=== PATIENT | female | born 1940 | race Caucasian/White ===

== ENCOUNTER 2016-11-15 18:34 | Emergency (ER) | payer MEDICARE, OTHER ==
[2016-11-15 17:47] LABS: WBC (NOT ORDERED) (RFLEX) 0 (0-5)
[2016-11-15 17:51] LABS: BASOPHILS 0.4 %; BASOPHILS ABSOLUTE 0.04 10/3/uL (0.0-0.16); EOSINOPHILS 1.4 %; EOSINOPHILS ABSOLUTE 0.15 10/3/uL (0.0-0.53); ER CBC TAT 0 Hrs 05 Mins; HEMOGLOBIN 9.7 g/dL (12.0-16.0); IMMATURE GRANULOCYTES 1.2 %; IMMATURE GRANULOCYTES ABSOLUTE 0.13 10/3/uL (0.0-0.11); LYMPHOCYTES 22.1 %; MEAN CORPUS HGB CONC 33.1 g/dL (32.0-36.0); MEAN PLATELET VOLUME 11.7 fL (9.2-13.0); MONOCYTES 6.5 %; MONOCYTES ABSOLUTE 0.71 10/3/uL (0.21-1.20); NEUTROPHILS 68.4 %; NEUTROPHILS ABSOLUTE 7.45 10/3/uL (2.02-8.40); PLATELET COUNT 290 10/3/uL (150-400); RBC DISTRIBUTION WIDTH 15.2 % (12.0-16.0); RED CELL COUNT 3.34 10/6/uL (4.0-5.6); WHITE BLOOD CELLS 10.9 10/3/uL (4.5-10.5)
[2016-11-15 17:52] LABS: HEMATOCRIT 29.3 % (36.0-48.0); MANUAL DIFF NO %; MEAN CORPUSCULAR VOLUME 87.7 fL (80-100)
[2016-11-15 17:55] LABS: ASCORBIC ACID (UR NOT ORDER) 20 (NEG); BILIRUBIN, URINE NEGATIVE (NEG); ER URINALYSIS TAT 0 Hrs 09 Mins; KETONE, URINE NEGATIVE (NEG); LEUKOCYTE ESTERASE(NOT OR NEG (NEG); NITRITE (URINE) NEG (NEG)
[2016-11-15 18:02] LABS: D-DIMER QUANTITATIVE 0.69 ug/mLFEU (< 0.50)
[2016-11-15 18:07] LABS: A/G RATIO 0.9 (0.7-1.9); ALBUMIN 3.4 G/DL (3.5-5.0); CALCIUM, SERUM 9.1 MG/DL (8.5-10.4); CHLORIDE, SERUM 101 MMOL/L (96-112); CO2 (CARBON DIOXIDE) 26 MMOL/L (24-34); CREATININE 1.61 MG/DL (0.55-1.02); GFR AFRICAN AMERICAN 35 ML/MIN (>=60); GFR NON AFRICAN AMERICAN 31 ML/MIN (>=60); GLOBULIN 3.7 G/DL (2.5-4.1); GLUCOSE, SERUM 290 MG/DL (60-99); SGOT(AST) 245 U/L (5-40); SGPT(ALT) 205 U/L (5-65); TOTAL BILIRUBIN 0.7 MG/DL (0-1.2); TOTAL PROTEIN 7.1 G/DL (6.0-8.5); TROPONIN I 0.03 NG/ML (<0.05)
[2016-11-15 18:08] LABS: ALKALINE PHOSPHATASE 80 U/L (45-117); BUN (BLOOD UREA NITROGEN) 33 MG/DL (6-23); POTASSIUM, SERUM 5.1 MMOL/L (3.5-5.3); SODIUM, SERUM 132 MMOL/L (135-148)
[~2016-11-15 18:34] MED LIST: ADVIL PO; APIDRA SC; ASA5GR PO; ASAB PO; ASPERCREME TOP; BIOTIN5 MG OR; CENTRUM PO; COZ25 PO; CYANO1000T PO; D-3; EMETROL LIQ.1 ML PO; FIBERCON PO; FOLIC ACID800 MCG PO; FOLIC PO; GAS-X80 MG PO; GLUCOPHAGE1000 MG PO; IBU-200200 MG PO; IMDUR30 PO; IMDUR60 PO; L20 PO; LANTUS SC; LANTUSCART SC; LEVAQUIN750 MG PO; LIPITOR80 MG PO; LIQUID TEARS OPH; MAGOX4 PO; MULTIVIT/MIN PO; NITROSTAT0.4 MG SL; PEPTO BISMOL UD30 ML PO; PLAVIX PO; PREV30 PO; PRILOSEC OTC20 MG PO; RAN500 PO; RANEXA1000 MG PO; RESTASIS OPH; SEPTRA1 TAB PO; STOOL SOFTENER PO; TOPROL PO; TOPROL XL200 MG PO; TOPXL100 PO; TRICOR145 PO; VITAMIN B-121000 MC1 SL; VITAMIN B12 PO; VITAMIN D OTC PO; VITAMIN D31000 UNIT PO; VIVELLE SY0.025 MG/2 TOP; [UNRECOGNIZED DRUG - REMARK] PO
[2016-11-15] MEDS ORDERED: LEVEMIR SC (20:30)
[2016-11-15] MEDS ORDERED: PRILOSEC OTC20 MG PO (20:30)
[2016-11-15] MEDS ORDERED: PLAVIX PO (20:31)
[2016-11-15] MEDS ORDERED: MYRBETRIQ50 MG PO (20:31)
[2016-11-15] MEDS ORDERED: TOPXL100 PO (20:31)
[2016-11-15] MEDS ORDERED: COZ25 PO (20:31)
[2016-11-15] MEDS ORDERED: LIPITOR80 MG PO (20:31)
[2016-11-15] MEDS ORDERED: HUMALOG SC (20:31)
[2016-11-15] MEDS ORDERED: MIRALAX POWDER1 PKT PO (20:32)
[2016-11-15] MEDS ORDERED: THERGRANM PO (20:32)
[2016-11-15] MEDS ORDERED: SYSTANE OPH (20:32)
[2016-12-29] MEDS ORDERED: APIDRA SC (10:56)
[2016-12-29] MEDS ORDERED: CELEBREX2 PO (10:59)
[2016-12-29] MEDS ORDERED: L20 PO ×2 (10:59→11:00)
[2016-12-29] MEDS ORDERED: IMDUR60 PO (11:00)
[2016-12-29] MEDS ORDERED: VITAMIN D31000 UNIT PO (11:01)
[2016-12-29] MEDS ORDERED: PREV30 PO (11:01)
[2017-03-30] MEDS ORDERED: MACROBID PO (14:11)
== END 2016-11-15 21:50 | disposition home or self-care (01) ==
LOC: ER 18:34
PROVIDERS: Nurse Practitioner Acute Care
DX: E87.70 Fluid overload, unspecified (principal); D64.9 Anemia, unspecified; I13.0 Hypertensive heart and chronic kidney disease with heart failure and stage 1 through stage 4 chronic kidney disease, or unspecified chronic kidney disease; E11.22 Type 2 diabetes mellitus with diabetic chronic kidney disease; N18.9 Chronic kidney disease, unspecified; I50.9 Heart failure, unspecified; I25.10 Atherosclerotic heart disease of native coronary artery without angina pectoris; K21.9 Gastro-esophageal reflux disease without esophagitis; Z95.5 Presence of coronary angioplasty implant and graft; Z85.3 Personal history of malignant neoplasm of breast; Z88.5 Allergy status to narcotic agent; Z88.1 Allergy status to other antibiotic agents; Z79.899 Other long term (current) drug therapy; Z79.4 Long term (current) use of insulin
CPT/HCPCS: 71010; 71275; 80053; 81001; 83880; 84484; 85025; 85379; 87040; 87070; 87205; 93971; 96372; 99285; J1940; Q9967

== ENCOUNTER 2016-12-19 12:16 | Emergency (ER) | payer MEDICARE, OTHER ==
[~2016-12-19 12:16] MED LIST changes: +HUMALOG SC; +LEVEMIR SC; +MIRALAX POWDER1 PKT PO; +MYRBETRIQ50 MG PO; +SYSTANE OPH; +THERGRANM PO
[2016-12-19 13:32] LABS: ASCORBIC ACID (UR NOT ORDER) NEG (NEG); BILIRUBIN, URINE NEGATIVE (NEG); KETONE, URINE NEGATIVE (NEG); LEUKOCYTE ESTERASE(NOT OR NEG (NEG); NITRITE (URINE) NEG (NEG); WBC (NOT ORDERED) (RFLEX) 1 (0-5)
[2016-12-19 13:47] LABS: BASOPHILS 0.2 %; BASOPHILS ABSOLUTE 0.02 10/3/uL (0.0-0.16); EOSINOPHILS 0.4 %; EOSINOPHILS ABSOLUTE 0.04 10/3/uL (0.0-0.53); HEMATOCRIT 36.3 % (36.0-48.0); HEMOGLOBIN 11.7 g/dL (12.0-16.0); IMMATURE GRANULOCYTES ABSOLUTE 0.09 10/3/uL (0.0-0.11); LYMPHOCYTES ABSOLUTE 1.67 10/3/uL (0.67-4.30); MANUAL DIFF NO %; MEAN CORPUS HGB CONC 32.2 g/dL (32.0-36.0); MEAN CORPUSCULAR HEMOGLOB 28.3 pg (26.0-34.0); MEAN CORPUSCULAR VOLUME 87.9 fL (80-100); MEAN PLATELET VOLUME 11.8 fL (9.2-13.0); MONOCYTES ABSOLUTE 0.46 10/3/uL (0.21-1.20); NEUTROPHILS 75.4 %; PLATELET COUNT 323 10/3/uL (150-400); RBC DISTRIBUTION WIDTH 14.3 % (12.0-16.0); RED CELL COUNT 4.13 10/6/uL (4.0-5.6); WHITE BLOOD CELLS 9.3 10/3/uL (4.5-10.5)
[2016-12-19 13:55] LABS: INTERNATIONAL NORMAL RATI 1.3 UNITS (-); PARTIAL THROMBO TIME 28.5 SEC (22.5-37.2); PROTIME (NOT ORD) 15.7 SEC (12.0-14.5)
[2016-12-19 14:03] LABS: BUN (BLOOD UREA NITROGEN) 36 MG/DL (6-23); CALCIUM, SERUM 8.2 MG/DL (8.5-10.4); CHEST PAIN PROFILE TAT 0 Hrs 20 Mins; CHLORIDE, SERUM 104 MMOL/L (96-112); CO2 (CARBON DIOXIDE) 27 MMOL/L (24-34); CREATININE 1.56 MG/DL (0.55-1.02); GFR AFRICAN AMERICAN 37 ML/MIN (>=60); GFR NON AFRICAN AMERICAN 32 ML/MIN (>=60); GLUCOSE, SERUM 242 MG/DL (60-99); POTASSIUM, SERUM 4.8 MMOL/L (3.5-5.3); SODIUM, SERUM 137 MMOL/L (135-148); TROPONIN I 0.04 NG/ML (<0.05)
[2016-12-29] MEDS ORDERED: APIDRA SC (10:56)
[2016-12-29] MEDS ORDERED: L20 PO ×2 (10:59→11:00)
[2016-12-29] MEDS ORDERED: CELEBREX2 PO (10:59)
[2016-12-29] MEDS ORDERED: IMDUR60 PO (11:00)
[2016-12-29] MEDS ORDERED: PREV30 PO (11:01)
[2016-12-29] MEDS ORDERED: VITAMIN D31000 UNIT PO (11:01)
[2017-03-30] MEDS ORDERED: MACROBID PO (14:11)
== END 2016-12-19 14:45 | disposition home or self-care (01) ==
LOC: ER 12:16
PROVIDERS: Hospitalist
DX: I12.9 Hypertensive chronic kidney disease with stage 1 through stage 4 chronic kidney disease, or unspecified chronic kidney disease (principal); E11.22 Type 2 diabetes mellitus with diabetic chronic kidney disease; N18.3 Chronic kidney disease, stage 3 (moderate); R55 Syncope and collapse; F41.9 Anxiety disorder, unspecified; F32.9 Major depressive disorder, single episode, unspecified; Z90.49 Acquired absence of other specified parts of digestive tract; Z88.5 Allergy status to narcotic agent; Z88.1 Allergy status to other antibiotic agents; Z79.899 Other long term (current) drug therapy; Z79.4 Long term (current) use of insulin
CPT/HCPCS: 71010; 80048; 81001; 82962; 83735; 84484; 85025; 85610; 85730; 93005; 99285

== ENCOUNTER 2017-03-31 05:08 | Inpatient (IN) | payer MEDICARE, OTHER ==
[2017-03-23 11:42] LABS: BASOPHILS 0.3 %; BASOPHILS ABSOLUTE 0.03 10/3/uL (0.0-0.16); EOSINOPHILS ABSOLUTE 0.09 10/3/uL (0.0-0.53); HEMOGLOBIN 11.9 g/dL (12.0-16.0); IMMATURE GRANULOCYTES 0.3 %; IMMATURE GRANULOCYTES ABSOLUTE 0.03 10/3/uL (0.0-0.11); INTERNATIONAL NORMAL RATI 1.2 UNITS (-); LYMPHOCYTES 13.1 %; LYMPHOCYTES ABSOLUTE 1.18 10/3/uL (0.67-4.30); MEAN CORPUS HGB CONC 31.7 g/dL (32.0-36.0); MEAN CORPUSCULAR HEMOGLOB 27.5 pg (26.0-34.0); MEAN CORPUSCULAR VOLUME 86.6 fL (80-100); MEAN PLATELET VOLUME 12.6 fL (9.2-13.0); MONOCYTES 8.9 %; NEUTROPHILS 76.4 %; NEUTROPHILS ABSOLUTE 6.86 10/3/uL (2.02-8.40); PLATELET COUNT 230 10/3/uL (150-400); PROTIME (NOT ORD) 14.6 SEC (12.0-14.5); RBC DISTRIBUTION WIDTH 15.5 % (12.0-16.0); RED CELL COUNT 4.33 10/6/uL (4.0-5.6)
[2017-03-23 11:43] LABS: HEMATOCRIT 37.5 % (36.0-48.0); MANUAL DIFF NO %
[2017-03-23 11:50] LABS: ALBUMIN 3.5 G/DL (3.5-5.0); ALKALINE PHOSPHATASE 80 U/L (45-117); BUN (BLOOD UREA NITROGEN) 29 MG/DL (6-23); CALCIUM, SERUM 9.5 MG/DL (8.5-10.4); CHLORIDE, SERUM 99 MMOL/L (96-112); CO2 (CARBON DIOXIDE) 27 MMOL/L (24-34); CREATININE 1.41 MG/DL (0.55-1.02); GFR AFRICAN AMERICAN 42 ML/MIN (>=60); GFR NON AFRICAN AMERICAN 36 ML/MIN (>=60); GLOBULIN 3.6 G/DL (2.5-4.1); POTASSIUM, SERUM 4.4 MMOL/L (3.5-5.3); SGOT(AST) 27 U/L (5-40); SGPT(ALT) 28 U/L (5-65); SODIUM, SERUM 135 MMOL/L (135-148); TOTAL BILIRUBIN 0.7 MG/DL (0-1.2); TOTAL PROTEIN 7.1 G/DL (6.0-8.5)
[2017-03-23 11:51] LABS: B NATRIURETIC PEPTIDE (BNP) 499.1 PG/ML (< 100.0)
[2017-03-23 11:52] LABS: GLUCOSE, SERUM 445 MG/DL (60-99)
[2017-03-23 12:30] LABS: GLYCOHEMOGLOBIN (HbA1c) 9.7 % (4.7-6.1)
[2017-03-23 13:03] LABS: ASCORBIC ACID (UR NOT ORDER) NEG (NEG); BILIRUBIN, URINE NEGATIVE (NEG); KETONE, URINE NEGATIVE (NEG); LEUKOCYTE ESTERASE(NOT OR MOD (NEG); WBC (NOT ORDERED) (RFLEX) > 182 (0-5)
[2017-03-29 16:36] LABS: ASCORBIC ACID (UR NOT ORDER) NEG (NEG); BILIRUBIN, URINE NEGATIVE (NEG); KETONE, URINE NEGATIVE (NEG)
[~2017-03-31] VITALS: Ht 152.4 cm; Wt 48.2 kg
--- NOTE | ~2017-03-31 | CN ---
Consultation Report [facility] [address] [place]. [address] NAME: THUY REYES : 39 STATUS : ADM IN [facility]#: [id number] AGE: 76 ADM/REG DATE : 03/31/17 MR#: [id number] REPORT SERV DATE: 04/02/17 DICTATED BY: JAIRO MELARA DATE: 04/02/17 REPORT STATUS : Draft TRANSCRIBED BY: ELAYNE DATE: 04/02/17 NEUROLOGY CONSULTATION DATE OF CONSULTATION: 04/02/2017 REASON FOR CONSULTATION: Altered mental status post MitraClip. PRIVACY DIRECTOR: Dr. Ap Barton. HISTORY OF PRESENT ILLNESS: The patient is a 76-year-old female, who underwent MitraClip insertion on 03/31/2017. After the procedure the patient's mental status dramatically declined. She is definitely more cognitively impaired than prior to the procedure. The patient's son is in the room, and has been a valuable historian. He mentions that the patient was diagnosed with mild cognitive impairment. However, she functions fairly well. She is a . She lives at home by herself. She gets outside, takes care of the yard and fixes her own meals. She has no difficulty operating the microwave or telephone. She does have problems with short-term memory however. The patient recently had a urinary tract infection, and was treated with antibiotics. She was checked for urinary tract infection prior to her procedure, and it had cleared. After the patient's MitraClip, she experienced dramatic decline in her cognitive function. She is only oriented to person, not place, time, or situation. She is not combative. She will follow simple commands, but is easily distracted and confused. Her son mentions that she had a couple of episodes of mild visual hallucinations. She has been given morphine IV postoperatively, but that was discontinued. Today during the exam, she thought her son was her , and thought she was in [place]. She could not understand that she was actually in a hospital. PAST MEDICAL HISTORY: Diabetes mellitus type 2, diabetic ketoacidosis, coronary artery disease (prior stent placement), hypertension, hyperlipidemia, GERD, breast cancer (status post mastectomy) and mild cognitive impairment. PAST SURGICAL HISTORY: Status post MitraClip, cholecystectomy, total abdominal hysterectomy, breast lumpectomy, appendectomy, bilateral rotator cuff repair, and mastectomy. HOME MEDICATIONS: Includes aspirin 81 mg daily, Lipitor 80 mg at bedtime, Celebrex 200 mg daily, Plavix 75 mg daily, Pepcid 20 mg b.i.d., Lasix 20 mg daily, NovoLog insulin sliding scale before meals and at bedtime, Cozaar 25 mg daily, Toprol-XL 100 mg daily, and Ranexa 500 mg b.i.d. ALLERGIES: CIPRO, CODEINE, AND LEVAQUIN. SOCIAL HISTORY: The patient is a . Has two children. Used to be a choral teacher. Consultation Report [address] [place]. [address] NAME: THUY REYES : 39 STATUS : ADM IN [facility]#: [id number] AGE: 76 ADM/REG DATE : 03/31/17 MR#: [id number] REPORT SERV DATE: 04/02/17 DICTATED BY: JAIRO MELARA DATE: 04/02/17 REPORT STATUS : Draft TRANSCRIBED BY: ELAYNE DATE: 04/02/17 Does not smoke, drink, alcohol, or use illicits. FAMILY HISTORY: The patient's mother at the age of 97 from an [place]. Father at the age of 74 from an [place] and COPD. The patient has two siblings, a brother who from COPD, and a sister who is alive and has Alzheimer's. REVIEW OF SYSTEMS: Please refer to the HPI. PHYSICAL EXAMINATION: GENERAL: The patient is a 76-year-old female, who stands 5 feet tall and weighs 111 pound. VITAL SIGNS: She is afebrile. Heart rate 75, respiratory rate 18, O2 saturations on room air 97%, and blood pressure 138/97. NEUROLOGIC: The patient is awake. She is pleasant, is chatty. Oriented to person only, not place, time, or situation. She will follow some simple commands, but does get confused with more than two-step command. Speech is clear. Language is fluent. Pupils are 3 mm. EOMs are intact. PERRLA. Unable to accurately test vision via confrontation. She has difficulty following those commands. [id number], no ataxia. No pronator drift. Upper extremity strength is 4/5. Upper DTRs 2+ bilaterally. No reported sensory deficits. Lower extremity strength is 4/5. Lower DTRs 2+ bilaterally. No reported sensory deficits. I did not get the patient up to ambulate by herself, fall risk. NECK: No carotid bruits. No JVD or thyromegaly. CHEST: Lung sounds are relatively clear. Regular rate and rhythm. LABORATORY DATA: CBC reveals a white count of 12.1, otherwise normal. BMP: Sodium is 131, glucose 278. CT of the brain, no acute changes. NIH stroke scale is 1 for level of consciousness. ASSESSMENT/PLAN: 1. Acute metabolic encephalopathy. a. Possibly medication related. The morphine has been stopped. I will stop Pepcid since this can cause confusion in elderly patients. Place the patient on Protonix 40 mg p.o. daily. b. Check lab work which include a repeat urinalysis, blood gas values, ammonia level, a.m. cortisol, TSH, B12, and folate. c. If the above does not reveal any pertinent information, we will attempt to do an MRI. We will see if the patient can undergo an MRI with the MitraClip and do an EEG. 2. Mild cognitive impairment. We will offer supportive care and schedule the patient for outpatient Neurology. 3. Status post MitraClip. The patient is being followed by Neurology at this time. Thank you again for including us in consultation. We will follow with you. Dr. Gill Consultation Report [address] [address] NAME: THUY REYES : 39 STATUS : ADM IN [facility]#: [id number] AGE: 76 ADM/REG DATE : 03/31/17 MR#: [id number] REPORT SERV DATE: 04/02/17 DICTATED BY: JAIRO MELARA DATE: 04/02/17 REPORT STATUS : Draft TRANSCRIBED BY: MODL DATE: 04/02/17 [place], my collaborating physician has been made aware of the patient's case and plan of care. DICTATED BY: Barbra Mendez DNP, [facility] ZUÑIGA/ELAYNE Jairo Melara MD / [id number] CC: Jayjay Mustafa M.D.
--- NOTE | ~2017-03-31 | HP ---
History And Physical [place] [address] [facility] [place]. [address] NAME: THUY REYES : 39 STATUS : ADM IN [facility]#: [id number] AGE: 76 ADM/REG DATE : 03/31/17 MR#: [id number] REPORT SERV DATE: 04/01/17 DICTATED BY: RENARD CANO DATE: 04/01/17 REPORT STATUS : Draft TRANSCRIBED BY: MODL DATE: 04/01/17 DATE OF ADMISSION: 03/31/2017 CHIEF COMPLAINT: Left knee and left lower extremity pain. HISTORY: This 76-year-old female, very difficult historian. She is attended by her son, who notes that she is somewhat confused/sedated today and has been through a procedure regarding her mitral valve and had other procedures scheduled. She reports about two weeks ago, she twisted her knee and it popped and swollen since that time. She was unable to localize the symptoms, but describes pain in her foot, ankle, tibia, knee, thigh, leg, and hip area. She has minimal discomfort on the contralateral side. No real associated neurologic symptoms. ALLERGIES: CODEINE, CIPRO, LEVAQUIN. MEDICATIONS: See chart. PAST MEDICAL HISTORY: Hypercholesterolemia, murmur, hypertension, coronary artery disease, history of gout, breast biopsy of right breast cancer diagnosed 2014, basal cell carcinoma, diabetes, anxiety, depression. PAST SURGICAL HISTORY: Hysterectomy 1969, cholecystectomy and appendectomy in 1987, tonsillectomy as a teenager. SOCIAL HISTORY: She is here with her son. No history given of cigarettes, alcohol, or illicit drug use. FAMILY HISTORY: No known anesthetic complications. REVIEW OF SYSTEMS: As above. PHYSICAL EXAMINATION: GENERAL: She is alert and pleasant and appropriate, but intermittently tearful and very anxious. EXTREMITIES: She has no localizable tenderness, but grossly hypersensitive to touch, all up and down her entire left lower extremity. With some distraction, she tolerates gentle range of motion at the hip. She was extremely painful with any attempted knee range of motion, but is able to move it on her own with distraction. Compartment supple. 2+ pulses. NEURO: Sensory motor was difficult to evaluate her strength because of pain, but sensory appears to be intact and symmetric. IMAGING DATA: Previous MRI from 02/26/2017 done here revealed significant effusion, but no acute trauma. ASSESSMENT: Hypersensitive to left lower extremity with a history of breast cancer and unable to fully evaluate with her degree of hypersensitivity. Where she is doing much History And Physical [address] [facility] [place] [address] NAME: THUY REYES : 39 STATUS : ADM IN PAT#: [id number] AGE: 76 ADM/REG DATE : 03/31/17 MR#: [id number] REPORT SERV DATE: 04/01/17 DICTATED BY: RENARD CANO DATE: 04/01/17 REPORT STATUS : Draft TRANSCRIBED BY: MODMinerva DATE: 04/01/17 better with Celebrex before I am concerned with non localizable symptoms in her history of breast cancer, diagnosed in 2014 and I would like to get a bone scan if once not been done. At this point, she has got her tests scheduled this evening. I have discussed this at length. Would recommend some physical therapy and desensitization as she tolerates as well. WTB/MODL Angle Cano M.D. / [id number] CC: Ap Barton M.D.
--- NOTE | ~2017-03-31 | OP ---
Record Of Operation [facility] [address] [place]. [address] NAME: THUY REYES : 39 STATUS : ADM IN PAT#: [id number] AGE: 76 ADM/REG DATE : 03/31/17 MR#: [id number] REPORT SERV DATE: 04/02/17 DICTATED BY: KAREN BARTON DATE: 03/31/17 REPORT STATUS : Draft TRANSCRIBED BY: ELAYNE DATE: 03/31/17 DATE OF PROCEDURE: 03/31/2017 STRUCTURAL CARDIOLOGY PROCEDURE REPORT INDICATIONS: Patient with severe mitral regurgitation by echocardiographic findings, felt to be at prohibitive risk for surgical mitral valve repair. The patient is seen by Cardiothoracic Surgery as well as the [facility] Valve Team for evaluation prior to procedure. BRIEF HISTORY: A 76-year-old female with acute on chronic diastolic congestive heart failure with multiple comorbidities with class III heart failure symptoms of dyspnea on exertion. Poor exercise tolerance related to her severe mitral regurgitation. The patient is seen in evaluation in the [facility] Valve Clinic, which included surgical evaluation for possible surgical valve repair. The patient felt to be at significant prohibitive risk for surgical valve replacement or repair with calculated STS for repair and replacement of 6.9 and 12.5% respectively with a major morbidity mortality from repair or replacement at 36 and 47.1% respectively. Patient's EuroSCORE 6.6%. POSTOPERATIVE DIAGNOSIS: Severe mitral regurgitation, status post repair with trivial mitral regurgitation postprocedure. OPERATORS: 1. Dr. Barton, flash drier operator. 2. Dr. Loya, secondary. 3. Dr. Schmitt, cardiothoracic surgical backup. PROCEDURES PERFORMED: 1. Right femoral access using a micropuncture technique. 2. Transseptal puncture under fluoroscopic and transesophageal echocardiographic guidance. 3. Successful deployment of a MitraClip device to the A2/P2 segments of the mitral valve with reduction in mitral regurgitation from 4+ to trivial. DETAILS OF PROCEDURE: After obtaining informed consent, the patient was brought into the hybrid operating room, placed in the supine position. The patient was intubated, Bean catheter placed and radial artery access obtained by the OR/Anesthesia staff. The entire MitraClip procedure was performed with the assistance of the [employer] Mit[employer] sales solutions representative in the operative suite during the procedure. The patient was prepped and draped in usual sterile manner. Local anesthesia was obtained over the right groin using 1% lidocaine. The right femoral vein was cannulated using a micropuncture technique with placement of a 6- Telugu sheath. The sheath was then exchanged over wire for an SL1 transseptal sheath. This was advanced over a 0.32 inch wire into the superior vena cava. The wire was removed. The sheath was carefully aspirated and flushed. The [place] transseptal needle was advanced under fluoroscopic guidance and positioned just inside the tip of the transseptal sheath. Under fluoroscopic and transesophageal echocardiographic guidance, the transseptal sheath was withdrawn and ultimately positioned in optimal location for transseptal puncture. The Record Of [facility] [address] [facility] [place]. [address] NAME: THUY REYES : 39 STATUS : ADM IN PAT#: [id number] AGE: 76 ADM/REG DATE : 03/31/17 MR#: [id number] REPORT SERV DATE: 04/02/17 DICTATED BY: KAREN BARTON DATE: 03/31/17 REPORT STATUS : Draft TRANSCRIBED BY: ELAYNE DATE: 03/31/17 [place] needle was advanced to the septum and radiofrequency energy applied with immediate crossing of the sheath and needle system into the left atrium. The patient was then administered intravenous heparin and activated clotting times were performed throughout the procedure to maintain an activated clotting time of greater than 250 seconds. The [place] needle was then removed from the sheath. Careful aspiration and flushing of the sheath were performed. We then moved to the prep table and the steerable guiding catheter and clip delivery system was then prepared. A ProTrack wire was then advanced through the transseptal sheath with the wire coiled in the left atrium. The transseptal sheath was then removed. The right femoral vein was then sequentially dilated using 12, 16, and 20 mm dilators. The MitraClip steerable guiding catheter was then advanced over the ProTrack wire and under fluoroscopic and transesophageal guidance, advanced across the interatrial septum and into the left atrium. The clip delivery system was then introduced into the steerable guiding catheter and the clip delivery system advanced with the clip delivered into the left atrium using fluoroscopic and transesophageal echocardiographic guidance. The clip was then appropriately aligned and delivered across the mitral valve. The leaflets were then grasped with leaflet insertion confirmed prior to closure of the MitraClip. Extensive transesophageal evaluation of the device to confirm leaflet insertion and appropriate alignment over the mitral regurgitation jet were performed, which demonstrated a marked decline in mitral regurgitation from 4+ to trace. The MitraClip device was then released from the clip delivery system. The clip delivery system was then removed and the steerable guiding catheter removed. Two mattress sutures were then placed at the site of the right femoral venous puncture and manual pressure applied. There was excellent hemostasis by completion of the procedure. The patient was extubated in the operating room and transferred to the Cardiovascular Intensive Care Unit in stable condition. TVT REGISTRY DATA: Preprocedural PRITESH assessment: Central A2/P2 mitral regurgitation of 4+ mixed Idania class 2/3A. Mitral regurgitation radius 1 cm. Mitral regurgitation EROA (PISA) 0.45 sq cm. Mitral valve regurgitant volume by PISA 60 mm. Vena contracta 0.7 cm. Mitral valve area by planimetry 4 sq cm. Pulmonary vein flow reversal noted in the left superior pulmonary vein. No evidence of same in the right superior pulmonary vein. Left ventricular ejection fraction 55% to 60%. Tricuspid valve regurgitation 0 to 1+. Septal crossing height 3.9 mm. Mean pressure gradient 1 mmHg. Postprocedural PRITESH assessment: Mitral valve area lateral 1.08 sq cm. Mitral valve area medial 1.71 sq cm. Mean gradient lateral 4 mmHg, mean gradient medial 4 mmHg. Left ventricular ejection fraction 55% to 60%. Resolution of pulmonary vein flow reversal. Procedural data: Radiation dose by single plane fluoroscopy 33.3 minutes, 250 mGy. DAP 7360 mGy/sq m. Procedure room arrival date and time 03/31/2017, 0730 hours. Anesthesia induction 0738. PRITESH access 0759 hours with femoral venous access is 0826. Transseptal access is 0830. Steerable catheter guide across the interatrial septum at 0917. Stop time of the procedure. The patient extubated at 1035. PRITESH removed at 1030. Delivery system retracted at 1013. The steerable catheter guide removed from the femoral vein at 1017. COMPLICATIONS: None. IMPRESSION: Successful percutaneous mitral valve repair using a single MitraClip closure Record Of [place] [address] [facility] [place]. [address] NAME: THUY REYES : 39 STATUS : ADM IN PAT#: [id number] AGE: 76 ADM/REG DATE : 03/31/17 MR#: [id number] REPORT SERV DATE: 04/02/17 DICTATED BY: KAREN BARTON DATE: 03/31/17 REPORT STATUS : Draft TRANSCRIBED BY: MODL DATE: 03/31/17 device with reduction in mitral regurgitation from 4+ to trivial. CSL/MODL Ap Barton M.D. / [id number] CC: Jayjay Mustafa M.D. James Hoback Jr., M.D.
--- NOTE | ~2017-03-31 | ECH ---
Echocardiogram [facility] [address] [place]. [address] NAME: THUY REYES : 39 STATUS : ADM IN PAT#: [id number] AGE: 76 ADM/REG DATE : 03/31/17 MR#: [id number] REPORT SERV DATE: 04/01/17 DICTATED BY: ANTWON ROBERTSON DATE: 03/31/17 REPORT STATUS : Draft TRANSCRIBED BY: ELAYNE DATE: 03/31/17 PRITESH REPORT REQUESTING PROVIDERS: Dr. Barton, Dr. Loya, and Dr. Schmitt of the MitraClip Team. Informed consent was obtained, signed, and on the chart prior to proceeding. A time-out was performed. Sedation and esophageal intubation were per Anesthesia. PROCEDURE PERFORMED: Included 2D, 3D, color, and spectral Doppler with continuous transesophageal echocardiographic monitoring throughout the MitraClip procedure. TECH: TD. RECORDING QUALITY: The overall quality of study was good. FINDINGS: Preprocedure assessment: The mitral valve morphology is normal. There is annular calcification with restricted mobility of the posterior leaflet. The anterior leaflet is fully mobile and thickened with mild anterior, A2 segment, prolapse noted. There is severe and somewhat central mitral regurgitation with a primary A2-P2 defect. The calculated EROA by PISA calculation is 0.45 sq cm with a calculated mitral regurgitant volume of 60 mL. The vena contracta was 0.7 cm. There was thick systolic flow reversal noted in the left superior pulmonary vein with systolic flow blunting in the right superior pulmonary vein. These findings were consistent with severe mitral regurgitation (severe mitral regurgitation left 4+, right ) due to degenerative changes with Rae 2/3A, mixed etiology. There is moderate left atrial enlargement. There was no mass thrombus seen. The left ventricle is normal in size with a visually estimated LVEF of 60%. There were no regional wall motion abnormalities. The baseline mitral valve area is 3.8 sq cm with a mean gradient of 1 mmHg. There was trivial tricuspid regurgitation, insufficient to calculate the right ventricular systolic pressures. The aortic root was noted to be mildly dilated. The aortic valve was trileaflet with mild sclerosis and adequate leaflet mobility. There was mild - moderate central aortic regurgitation noted. PROCEDURAL MONITORING: Successful transseptal crossing at a height of 3.9 cm was achieved during PRITESH monitoring. The MitraClip was successfully positioned across the primary A2-P2 defect. Adequate leaflet capture was obtained with a good "tissue bridge." Following successful clip deployment, there was trivial - mild (1+) residual mitral regurgitation noted. The medial orifice area was 1.71 sq cm and the lateral orifice area was 1.1 sq cm with an affective mitral area of 2.8 sq cm. The mean lateral orifice gradient was 4 mmHg and the mean medial orifice gradient was 4 mmHg. Evaluation of pulmonary veins revealed normalized systolic and diastolic flow in the left and right superior pulmonary veins with no systolic blunting in the right superior pulmonary vein and no systolic flow reversal in the left superior pulmonary vein demonstrating significant reduction in mitral regurgitation. The postprocedure LVEF was 60% with no regional wall motion abnormalities. Again, there was trivial postprocedure tricuspid regurgitation. The interatrial septum was examined at the end of procedure with multiple depths and angulations and there was a small Echocardiogram [address] [address] NAME: THUY REYES : 39 STATUS : ADM IN PAT#: [id number] AGE: 76 ADM/REG DATE : 03/31/17 MR#: [id number] REPORT SERV DATE: 04/01/17 DICTATED BY: ANTWON ROBERTSON DATE: 03/31/17 REPORT STATUS : Draft TRANSCRIBED BY: MODL DATE: 03/31/17 iatrogenic atrial septal defect with mild left - right interatrial shunt noted. There was no pericardial effusion seen. COMPLICATIONS: None. CONCLUSION: 1. SUCCESSFUL SINGLE MITRACLIP REPAIR OF SEVERE, 4+, MITRAL REGURGITATION FROM DEGENERATIVE CHANGES WITH A MIXED RAE 2/3A ETIOLOGY DOWN TO TRIVIAL - MILD RESIDUAL REGURGITATION, 1+. 2. NORMAL LV SIZE WITH PRESERVED EF, 60%. 3. MODERATE LEFT ATRIAL ENLARGEMENT. 4. MILD AORTIC VALVE SCLEROSIS WITH MILD - MODERATE CENTRAL REGURGITATION AND NO STENOSIS. 5. SMALL IATROGENIC ATRIAL SEPTAL DEFECT WITH MILD LEFT - RIGHT INTERATRIAL SHUNT. AEA/ELAYNE Antwon Robertson M.D. / [id number] CC: Jayjay Mustafa M.D.
[~2017-03-31 05:08] MED LIST changes: +CELEBREX2 PO; +MACROBID PO
[2017-03-31 12:11] LABS: CREATININE 0.9 MG/DL (0.55-1.02)
[2017-03-31 12:12] LABS: CREATININE 0.9 MG/DL (0.55-1.02)
[2017-03-31 12:13] LABS: CREATININE 0.9 MG/DL (0.55-1.02)
[2017-03-31 12:17] LABS: HEMATOCRIT 30.7 % (36.0-48.0); PLATELET COUNT 250 10/3/uL (150-400)
[2017-03-31 12:24] LABS: PARTIAL THROMBO TIME 29.9 SEC (22.5-37.2)
[2017-03-31 12:25] LABS: INTERNATIONAL NORMAL RATI 1.1 UNITS (-); PROTIME (NOT ORD) 14.5 SEC (12.0-14.5)
[2017-03-31 12:29] LABS: BUN (BLOOD UREA NITROGEN) 32 MG/DL (6-23); CALCIUM, SERUM 8.7 MG/DL (8.5-10.4); CHLORIDE, SERUM 106 MMOL/L (96-112); CO2 (CARBON DIOXIDE) 23 MMOL/L (24-34); CREATININE 1.19 MG/DL (0.55-1.02); GFR AFRICAN AMERICAN 51 ML/MIN (>=60); GFR NON AFRICAN AMERICAN 44 ML/MIN (>=60); GLUCOSE, SERUM 153 MG/DL (60-99); POTASSIUM, SERUM 4.1 MMOL/L (3.5-5.3); SODIUM, SERUM 138 MMOL/L (135-148)
[2017-03-31 17:12] LABS: HEMATOCRIT 30.4 % (36.0-48.0)
[2017-03-31 17:24] LABS: CALCIUM, SERUM 8.6 MG/DL (8.5-10.4); CHLORIDE, SERUM 105 MMOL/L (96-112); CO2 (CARBON DIOXIDE) 25 MMOL/L (24-34); GFR AFRICAN AMERICAN 50 ML/MIN (>=60); GFR NON AFRICAN AMERICAN 44 ML/MIN (>=60); POTASSIUM, SERUM 4.5 MMOL/L (3.5-5.3); SODIUM, SERUM 138 MMOL/L (135-148)
[2017-03-31 17:25] LABS: BUN (BLOOD UREA NITROGEN) 27 MG/DL (6-23); GLUCOSE, SERUM 96 MG/DL (60-99)
[2017-04-01 03:38] LABS: HEMATOCRIT 30.3 % (36.0-48.0); MEAN CORPUSCULAR HEMOGLOB 28.2 pg (26.0-34.0); MEAN CORPUSCULAR VOLUME 85.6 fL (80-100); MEAN PLATELET VOLUME 11.9 fL (9.2-13.0); PLATELET COUNT 238 10/3/uL (150-400); RBC DISTRIBUTION WIDTH 15.4 % (12.0-16.0); RED CELL COUNT 3.54 10/6/uL (4.0-5.6)
[2017-04-01 03:40] LABS: MANUAL DIFF YES %; WHITE BLOOD CELLS 14.5 10/3/uL (4.5-10.5)
[2017-04-01 03:49] LABS: CALCIUM, SERUM 8.7 MG/DL (8.5-10.4); CHLORIDE, SERUM 102 MMOL/L (96-112); CO2 (CARBON DIOXIDE) 24 MMOL/L (24-34); CREATININE 1.25 MG/DL (0.55-1.02); GFR AFRICAN AMERICAN 48 ML/MIN (>=60); GFR NON AFRICAN AMERICAN 41 ML/MIN (>=60); POTASSIUM, SERUM 4.3 MMOL/L (3.5-5.3); SODIUM, SERUM 135 MMOL/L (135-148)
[2017-04-01 03:51] LABS: BUN (BLOOD UREA NITROGEN) 22 MG/DL (6-23); GLUCOSE, SERUM 132 MG/DL (60-99)
[2017-04-01 04:02] LABS: LYMPHOCYTES 7 %; LYMPHOCYTES ABSOLUTE (CALC) 1.02 10/3/uL (0.67-4.30); MONOCYTES 6 %; MONOCYTES ABSOLUTE (CALC) 0.87 10/3/uL (0.21-1.20); NEUTROPHILS ABSOLUTE (CALC) 12.62 10/3/uL (2.02-8.40); SEGMENTED NEUTROPHIL (0) 87 %; TOTAL NUCLEATED CELLS 100
[2017-04-01 04:05] LABS: PLATELET ESTIMATE ADQ (ADEQUATE)
[2017-04-02 06:00] LABS: CALCIUM, SERUM 8.9 MG/DL (8.5-10.4); CHLORIDE, SERUM 99 MMOL/L (96-112); CO2 (CARBON DIOXIDE) 22 MMOL/L (24-34); CREATININE 1.38 MG/DL (0.55-1.02); GFR AFRICAN AMERICAN 43 ML/MIN (>=60); GFR NON AFRICAN AMERICAN 37 ML/MIN (>=60); SODIUM, SERUM 131 MMOL/L (135-148)
[2017-04-02 06:01] LABS: BUN (BLOOD UREA NITROGEN) 28 MG/DL (6-23); GLUCOSE, SERUM 278 MG/DL (60-99)
[2017-04-02 06:12] LABS: BASOPHILS 0.2 %; BASOPHILS ABSOLUTE 0.02 10/3/uL (0.0-0.16); EOSINOPHILS 1.3 %; EOSINOPHILS ABSOLUTE 0.16 10/3/uL (0.0-0.53); HEMATOCRIT 31.2 % (36.0-48.0); HEMOGLOBIN 10.3 g/dL (12.0-16.0); IMMATURE GRANULOCYTES 0.3 %; IMMATURE GRANULOCYTES ABSOLUTE 0.04 10/3/uL (0.0-0.11); LYMPHOCYTES 7.2 %; LYMPHOCYTES ABSOLUTE 0.87 10/3/uL (0.67-4.30); MEAN CORPUSCULAR HEMOGLOB 28.5 pg (26.0-34.0); MEAN CORPUSCULAR VOLUME 86.4 fL (80-100); MEAN PLATELET VOLUME 11.7 fL (9.2-13.0); MONOCYTES 9.4 %; MONOCYTES ABSOLUTE 1.14 10/3/uL (0.21-1.20); NEUTROPHILS 81.6 %; NEUTROPHILS ABSOLUTE 9.91 10/3/uL (2.02-8.40); PLATELET COUNT 232 10/3/uL (150-400); RBC DISTRIBUTION WIDTH 15.4 % (12.0-16.0); RED CELL COUNT 3.61 10/6/uL (4.0-5.6); WHITE BLOOD CELLS 12.1 10/3/uL (4.5-10.5)
[2017-04-02 06:15] LABS: MANUAL DIFF NO %
[2017-04-02 13:45] LABS: CALCIUM IONIZED 4.75 MG/DL (3.80-4.80)
[2017-04-02 14:22] LABS: INTACT PTH (ICMA) 26.7 PG/ML (10.0-65.0)
[2017-04-02 14:23] LABS: ALBUMIN 2.9 G/DL (3.5-5.0); DIRECT BILIRUBIN 0.2 MG/DL (0.0-0.4); FREE T4 1.59 NG/DL (0.76-1.46); INDIRECT BILIRUBIN(NOT ORDER) 0.4 MG/DL (0.1-0.9); PHOSPHORUS, SERUM 2.8 MG/DL (2.5-4.5); TOTAL BILIRUBIN 0.6 MG/DL (0-1.2); TOTAL PROTEIN 6.7 G/DL (6.0-8.5)
[2017-04-02 14:25] LABS: FOLATE 19.8 NG/ML (>5.2); ULTRASENSITIVE TSH 1.99 MCIU/ML (0.358-3.740)
[2017-04-02 15:31] LABS: ASCORBIC ACID (UR NOT ORDER) NEG (NEG); BILIRUBIN, URINE NEGATIVE (NEG); KETONE, URINE TRACE MG/DL (NEG); LEUKOCYTE ESTERASE(NOT OR NEG (NEG); WBC (NOT ORDERED) (RFLEX) < 1 (0-5)
[2017-04-05 10:43] LABS: BUN (BLOOD UREA NITROGEN) 30 MG/DL (6-23); CALCIUM, SERUM 9.3 MG/DL (8.5-10.4); CHLORIDE, SERUM 108 MMOL/L (96-112); CO2 (CARBON DIOXIDE) 22 MMOL/L (24-34); CREATININE 1.24 MG/DL (0.55-1.02); GFR AFRICAN AMERICAN 49 ML/MIN (>=60); GFR NON AFRICAN AMERICAN 42 ML/MIN (>=60); GLUCOSE, SERUM 255 MG/DL (60-99)
[2017-04-05 10:44] LABS: SODIUM, SERUM 140 MMOL/L (135-148)
[2017-04-06] MEDS ORDERED: ASAB PO (11:28)
[2017-04-06] MEDS ORDERED: COZ25 PO (11:34)
[2017-04-06] MEDS ORDERED: TOPXL25 PO (11:38)
[2017-04-06] MEDS ORDERED: PROTONIX PO (11:40)
[2017-04-06] MEDS ORDERED: SEROQUEL25 PO (11:42)
== END 2017-04-06 13:07 | disposition home or self-care (01) | DRG 228 ==
LOC: ENRESERVTM → ENRESERVDT → ENRESERV → CVICU 05:08 → 5NO 05:08 → SDC/OF 05:08 → CVICU 10:14 → 5NO 04-01 13:52
PROVIDERS: Internal Medicine Cardiovascular Disease; Nurse Practitioner
PROC: 02UG3JZ Supplement Mitral Valve with Synthetic Substitute, Percutaneous Approach (ICD-10-PCS; principal; 2017-03-31)
DX: I34.0 Nonrheumatic mitral (valve) insufficiency (principal); I50.33 Acute on chronic diastolic (congestive) heart failure; I63.9 Cerebral infarction, unspecified; G92 Toxic encephalopathy; E87.1 Hypo-osmolality and hyponatremia; I97.820 Postprocedural cerebrovascular infarction following cardiac surgery; E11.9 Type 2 diabetes mellitus without complications; Z00.6 Encounter for examination for normal comparison and control in clinical research program; I25.10 Atherosclerotic heart disease of native coronary artery without angina pectoris; Z95.5 Presence of coronary angioplasty implant and graft; I11.0 Hypertensive heart disease with heart failure; F32.9 Major depressive disorder, single episode, unspecified; F41.9 Anxiety disorder, unspecified; E78.00 Pure hypercholesterolemia, unspecified; Z90.49 Acquired absence of other specified parts of digestive tract; M25.562 Pain in left knee
CPT/HCPCS: 33418; 36415; 70450; 70551; 71010; 71020; 80048; 80053; 80076; 81001; 82140; 82330; 82533; 82607; 82746; 82962; 83036; 83735; 83880; 83970; 84100; 84132; 84295; 84439; 84443; 85014; 85018; 85025; 85049; 85347; 85610; 85730; 86850; 86900; 86901; 87077; 87086; 87186; 87641; 93005; 93306; 97110-GP; 97116-GP; 97161-GP; 97165-GO; A9270-GY; C1769; C1894; G8978-CL-GP; G8979-CJ-GP; G8987-CJ-GO; G8988-CI-GO; J0360; J0690; J1644; J2250; J2370; J2405; J2710; J2720; J3010; J3475; Q9967